=== PATIENT | male | born 1960 | race Caucasian/White ===

== ENCOUNTER → 2019-08-07 09:15 | Outpatient (CLI) | payer BC ==
--- NOTE | 2019-08-07 10:29 | NUR ---
TIME OUT PERFORMED @ [address] REYES & BLAYNE DIAZ RTR. PATIENT, , & PROCEDURE VERIFIED.
== END | disposition home or self-care (01) ==
LOC: D.RAD 09:15 → D.MRI 10:30
PROVIDERS: ATTEND Clinical Nurse Specialist Family Health
DX: M25.511 Pain in right shoulder (principal)